=== PATIENT | female | born 1980 | race Two or more races ===

== ENCOUNTER 2021-10-24 10:45 | Outpatient (CLI) | payer OTHER ==
[~2021-10-24 10:45] MED LIST: Clonazepam PO; SYNTHROID112 MCG PO
== END 2021-10-24 10:57 | disposition home or self-care (01) ==
LOC: SONOGRAMA 10:45
PROVIDERS: ATTEND Internal Medicine Endocrinology, Diabetes & Metabolism
DX: E04.1 Nontoxic single thyroid nodule (principal)